=== PATIENT | male | born 1960 | race Two or more races ===

== ENCOUNTER 2018-04-13 15:25 | Inpatient (IN) | payer MEDICAID ==
[~2018-04-13] VITALS: Ht 167.6 cm; Wt 78.0 kg
[2018-04-13] VITALS (7 sets, daily range): BP systolic 121–149; BP diastolic 65–78
[2018-04-13] MEDS ORDERED: RANI150T8 PO (15:41)
--- NOTE | 2018-04-13 15:43 | NUR ---
TRIAGE NURSE NOTE: THE MEDICATION LIST PAPERWORK THAT WAS GIVEN TO ME BY THE AMBULANCE STAFF FOR THIS PATIENT DOES NOT HAVE PATIENTS NAME ON IT.. I ASKED PATIENT IF HE KNOWS THE NAMES OF THE MEDICINES HE TAKES AND HE SAID "NOT REALLY". HE DENIES TAKING A BLOOD PRESSURE MEDICINE AND THE LIST HAD A BP MEDICINE ON IT.. I CANNOT USE THIS LIST I DO NOT KNOW IF IOT IS HIS MED LIST. I CALLED [facility] TO SEND/FAX ME A LIST WITH THE PATIENTS INFO ON IT.
--- NOTE | 2018-04-13 15:50 | NUR ---
at bedside to see and examine patient.
[2018-04-13] MEDS ORDERED: IV NORMAL SALINE 1000 ML BAG IV ONE ×2 (16:00→17:00)
[2018-04-13] MEDS ORDERED: GEMF600T3 PO (16:01)
[2018-04-13] MEDS ORDERED: LISI40TA4 PO (16:02)
[2018-04-13] MEDS ORDERED: GABA800T2 PO (16:03)
[2018-04-13] MEDS ORDERED: FAMO20TA8 PO (16:03)
[2018-04-13] MEDS ORDERED: DOCU100C36 PO (16:04)
[2018-04-13] MEDS ORDERED: DICL100G16 TP (16:04)
[2018-04-13] MEDS ORDERED: CEFTRIAXONE 1 G in IV DEXTROSE 5% 100 ML IV ONE (16:15)
[2018-04-13 16:16] LABS: *BILIRUBIN,URIN NEGATIVE (NEGATIVE); *BLOOD, URINE 3+ (NEGATIVE); *CLARITY,URINE CLOUDY (CLEAR); *KETONES,URINE NEGATIVE (NEGATIVE); *PROTEIN,URINE 2+ (NEGATIVE); *UROBILINOGEN,URINE 0.2 E.U./dl (NORMAL); LEUKOCYTE ESTERASE ,URINE 1+ (NEGATIVE); NITRITE, URINE NEGATIVE (NEGATIVE); PH,URINE 6.5 (5.0-8.0); UGLUCOSE NEGATIVE (NEGATIVE)
[2018-04-13 16:17] LABS: BASOPHILS # (AUTO) 0.1 K/uL (0.0-8.0); BASOPHILS % (AUTO) 0.5 % (0.0-2.0); HEMATOCRIT 28.5 % (36.7-47.1); HEMOGLOBIN 9.2 g/dL (12.5-16.3); LYMPHOCYTES # (AUTO) 0.5 K/uL (20.0-40.0); MEAN CORPUSCULAR HEMOGLOBIN 30.4 uug (23.8-33.4); MEAN CORPUSCULAR HGB CONC 32 g/dL (32.5-36.3); MEAN CORPUSCULAR VOLUME 94.5 fL (73.0-96.2); MONOCYTES # (AUTO) 1.5 K/uL (2.0-10.0); MONOCYTES % (AUTO) 9.4 % (0.0-11.0); NEUTROPHILS # (AUTO) 13.7 K/uL (1.8-8.9); NEUTROPHILS % (AUTO) 87.1 % (38.5-71.5); PLATELET COUNT (AUTO) 211 K/uL (152-348); RED BLOOD CELL COUNT(AUTO) 3.02 MIL/uL (4.06-5.63); WHITE BLOOD COUNT (AUTO) 15.7 K/uL (3.6-10.2)
--- NOTE | 2018-04-13 16:24 | NUR ---
heart rate 113 119/80, SAT 100% pt. with c/o pain of his back. 02/15, notified.
[2018-04-13 16:26] LABS: CREATININE 1.1 mg/dL (0.6-1.3); POTASSIUM 4.8 mmol/L (3.5-5.1)
[2018-04-13 16:31] LABS: BILIRUBIN,DIRECT 0.3 mg/dL (0.0-0.2); BILIRUBIN,TOTAL 0.6 mg/dL (0.2-1.0)
[2018-04-13 16:32] LABS: *COLOR,URINE RED (YELLOW)
[2018-04-13] MEDS ORDERED: CEFTRIAXONE 1 G VIAL ONE (16:32)
[2018-04-13 16:36] LABS: RBC,URINE TNTC /HPF (0-3)
[2018-04-13 16:37] LABS: BACTERIA,URINE MANY /HPF (NONE SEEN); WBC,URINE 50-80 /HPF (0-3)
--- NOTE | 2018-04-13 16:44 | NUR ---
114/64, HR. 115. Addendum: 04/13/18 at 1645 by GMATEOS SAT 100%
[2018-04-13] MEDS ORDERED: VANCOMYCIN IV 1,000 MG in IV DEXTROSE 5% 250 ML IV ONE (17:00)
[2018-04-13] MEDS ORDERED: IV NORMAL SALINE 500 ML BAG IV ONE (17:00)
[2018-04-13] MEDS ORDERED: VANCOMYCIN IV 200 ML ONE (17:07)
[2018-04-13] MEDS ORDERED: IV NORMAL SALINE 250 ML IV ONE (17:14)
[2018-04-13] MEDS ORDERED: NORMAL SALINE FLUSH 10 ML DISP.SYRIN ONE (17:14)
[2018-04-13] MEDS ORDERED: IOHEXOL 300MG/ML 100 ML INFUS..BTL ONE (17:14)
[2018-04-13] MEDS ORDERED: SWABABLE VALVE TRANSFER SET EA MC ONE (17:14)
--- NOTE | 2018-04-13 17:23 | NUR ---
Patient taken down for CT.
--- NOTE | 2018-04-13 17:30 | NUR ---
Hr 111, SAT 100%, RR 18, 126/76 Temp 100.0.
--- NOTE | 2018-04-13 17:43 | NUR ---
A call to [employer] consumer electronics merchandiser physician Dr. iSnha.
--- NOTE | 2018-04-13 17:49 | NUR ---
HR 122, SAt 100%, RR 16, 164/93.
--- NOTE | 2018-04-13 17:49 | NUR ---
patient back from Ct. Addendum: 04/13/18 at 1809 by GMATEOS IV to LFA red swollen and infiltrated. Left external jugular G 18 started by .
--- NOTE | 2018-04-13 18:13 | NUR ---
at bedside Lumbar pucture in progress. pt. AAOx4. vitals stable see VS flow sheet.
[2018-04-13] MEDS ORDERED: ACETAMINOPHEN 325 MG TABLET PO ONE (18:15)
--- NOTE | 2018-04-13 18:20 | NUR ---
LUIS EDUARDO finished at this time specimens taken to lab as ordered by rn. Hernandez.
[2018-04-13] MEDS ORDERED: ACETAMINOPHEN ES 500 MG TABLET ONE (18:22)
[2018-04-13] MEDS ORDERED: MORPHINE SULFATE 2 MG/1 ML DISP.SYRIN IV ONE (18:30)
--- NOTE | 2018-04-13 18:30 | NUR ---
HR 115, 97% RA, 104/60 RR 18.
--- NOTE | 2018-04-13 18:41 | NUR ---
New RFA G 20 started at this time.
[2018-04-13] MEDS ORDERED: MORPHINE SULFATE 2 MG/1 ML DISP.SYRIN IV PRN (18:45)
[2018-04-13] MEDS ORDERED: ENALAPRILAT DIHYDRATE 1.25 MG/1 ML VIAL IV PRN (18:45)
[2018-04-13] MEDS ORDERED: ONDANSETRON 4 MG/2 ML VIAL IV PRN (18:45)
[2018-04-13] MEDS ORDERED: MAGNESIUM HYDROXIDE 30 ML LIQUID UDC PO PRN (18:45)
[2018-04-13] MEDS ORDERED: ACETAMINOPHEN 325 MG TABLET PO PRN (18:45)
[2018-04-13] MEDS ORDERED: MORPHINE SULFATE 4 MG/1 ML DISP.SYRIN ONE (18:48)
--- NOTE | 2018-04-13 19:09 | NUR ---
Telephone report givento Lauren Chambers R.n. infomed that IV fluids ordered for sepsis protocol area bout to be completed.
--- NOTE | 2018-04-13 19:20 | NUR ---
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
[2018-04-13 19:22] LABS: CSF PROTEIN 120 mg/dL (15-45)
[2018-04-13 19:24] LABS: CSF GLUCOSE 78 mg/dL (40-70)
--- NOTE | 2018-04-13 19:50 | NUR ---
ADMITTED PT FROM ER VIA ALEXANDRE, W/ ADMITTING DX OF SEPSIS. PT IS ALERT & ORIENTED X3. ON RM AIR W/ O2 SAT OF 97%. HEP LOCK ON RFA INFILTRATED & REMOVED. HEP LOCK INTACT & PATENT ON LEFT EXTERNAL JUGULAR # 20. PT. IS PARAPLEGIC. BOTH LOWER EXTREMITIES ARE FLACCID. C-SCOPE ST, TEMP-102 ORALLY. PERIANAL AREA IS REDDENED, CLEANED & KEPT DRY. REPOSITIONED ON HIS SIDE W/ HOB ELEVATED.
[2018-04-13] MEDS ORDERED: FLUCONAZOLE 200 MG/NS 100ML IV 100 MG in PREMIXED 1 EACH IV SCH ×2 (20:00→20:45)
--- NOTE | 2018-04-13 20:30 | NUR ---
JANETTE LOBATO NOTIFIED CSF TOTAL PROTEIN RESULT-120.
--- NOTE | 2018-04-13 20:46 | NUR ---
pharmacy clinical notes: (vancomycin dosing) S: 57 yo male with DX of: Clinical sepsis, both buttock cellulitis/abscess, s/p i&d; HCAP and Large R pl effusion ordered Vancomycin per RX. Pt is also on Merrem and Diflucan O: BUN/SCR 24/1.1; WBC 15.7; TEMP 101.7, DOSING WT 165 LBS A/P: Pt received Vancomycin 1 gm in ER @ 17:12(will consider dose #1) . Will dose Vancomycin @ 1gm IVPB q13h. next dose due @ 0600 am tomorrow (dose #2). Estimated peak of 35 and trough of 17. Plan to order Vanco trough prior to 4th dose (not ordered in [employer]). Will continue to follow up
[2018-04-13] MEDS ORDERED: Z GUARD REMEDY PASTE 57 GM TUBE TOP PRN (21:00)
[2018-04-13] MEDS: IV 1/2NS 1000 ML 1,000 ML IV PRN (21:08)
[2018-04-13] MEDS: Z GUARD REMEDY PASTE 57 GM TUBE TOP SCH (21:09)
[2018-04-13] MEDS: NYSTATIN SUSPENSION 5 ML LIQUID UDC PO SCH (21:10)
[2018-04-13] MEDS: MEROPENEM 0.5 G in IV NORMAL SALINE 50 ML IV SCH (22:00)
--- NOTE | 2018-04-13 22:00 | NUR ---
HS CARE DONE. REPOSITIONED W/ HOB ELEVATED.
[2018-04-13] MEDS ORDERED: GUAIFENESIN/CODEINE 5 ML LIQUID UDC PO PRN (22:45)
--- NOTE | 2018-04-13 23:00 | NUR ---
SLEEPING AT THIS TIME. V/S STABLE.
[2018-04-14] VITALS (17 sets, daily range): BP systolic 99–158; BP diastolic 51–115
--- NOTE | 2018-04-14 04:00 | NUR ---
AM CARE DONE. ORAL CARE DONE. REPOSITIONED ON HIS SIDE W/ HOB ELEVATED.
[2018-04-14 04:57] LABS: BASOPHILS % (AUTO) 0.2 % (0.0-2.0); HEMATOCRIT 26.5 % (36.7-47.1); HEMOGLOBIN 8.6 g/dL (12.5-16.3); LYMPHOCYTES # (AUTO) 0.6 K/uL (20.0-40.0); LYMPHOCYTES % (AUTO) 4.1 % (20.5-51.5); MEAN CORPUSCULAR HEMOGLOBIN 29.6 uug (23.8-33.4); MEAN CORPUSCULAR HGB CONC 32 g/dL (32.5-36.3); MEAN CORPUSCULAR VOLUME 91.7 fL (73.0-96.2); MONOCYTES # (AUTO) 0.8 K/uL (2.0-10.0); MONOCYTES % (AUTO) 6.1 % (0.0-11.0); NEUTROPHILS # (AUTO) 12.1 K/uL (1.8-8.9); NEUTROPHILS % (AUTO) 89.6 % (38.5-71.5); PLATELET COUNT (AUTO) 160 K/uL (152-348); RED BLOOD CELL COUNT(AUTO) 2.89 MIL/uL (4.06-5.63); WHITE BLOOD COUNT (AUTO) 13.5 K/uL (3.6-10.2)
[2018-04-14] MEDS: MEROPENEM 0.5 G in IV NORMAL SALINE 50 ML IV SCH ×2 (05:20→13:48)
[2018-04-14 05:21] LABS: THYROID STIMULATING HORMONE 0.382 mIU/mL (0.358-3.740)
[2018-04-14 05:39] LABS: BILIRUBIN,TOTAL 0.6 mg/dL (0.2-1.0); CREATININE 1.2 mg/dL (0.6-1.3); MAGNESIUM 1.5 mg/dL (1.8-2.4); POTASSIUM 4.7 mmol/L (3.5-5.1); TOTAL PROTEIN, SERUM 6.6 g/dL (6.4-8.2)
--- NOTE | 2018-04-14 05:47 | NUR ---
CHEST XR DONE.
[2018-04-14] MEDS ORDERED: VANCOMYCIN IV 1 G in PREMIXED 0 EACH IV SCH (06:00)
--- NOTE | 2018-04-14 06:00 | NUR ---
REPOSITIONED ON HIS SIDE W/ HOB, NOT IN ANY DISTRESS.
--- NOTE | 2018-04-14 08:02 | NUR ---
reported from lab patient has gram negative rods in blood cultures. patient is on broad spectrum antibiotics. Will report results to doctor.
[2018-04-14] MEDS: FAMOTIDINE 20 MG TABLET PO SCH ×2 (08:05→17:27)
[2018-04-14] MEDS: NYSTATIN SUSPENSION 5 ML LIQUID UDC PO SCH ×3 (08:05→17:26)
[2018-04-14] MEDS: GABAPENTIN 400 MG CAPSULE PO SCH ×3 (08:07→17:27)
[2018-04-14] MEDS: Z GUARD REMEDY PASTE 57 GM TUBE TOP SCH (08:08)
[2018-04-14] MEDS ORDERED: GEMFIBROZIL 600 MG TABLET PO SCH (09:00)
[2018-04-14] MEDS ORDERED: Medication Not On Formulary EA (Gabapentin 1 TAB) PO SCH (09:00)
[2018-04-14] MEDS ORDERED: GABAPENTIN 400 MG CAPSULE PO SCH (09:00)
[2018-04-14] MEDS ORDERED: DOCUSATE SODIUM 100 MG CAPSULE PO SCH (09:00)
[2018-04-14] MEDS: MORPHINE SULFATE 4 MG/1 ML DISP.SYRIN IV PRN ×3 (10:00→19:39)
--- NOTE | 2018-04-14 11:11 | NUR ---
pharmacy clinical notes: (vancomycin dosing) S: To continue vancomycin dosing for this 57 yo male for clinical sepsis, both buttock cellulitis/abscess, s/p i&d; HCAP and Large R pl effusion O: BUN/SCR 19/1.2; WBC 13.5; TEMP 98.2 wt 78 kg ht 167.6 cm A/P: Due to slight increase in srcr, will change dose from vanco 1gm IV q13h to vanco 1250mg IV q18 h for predicted vanco trough level of 15 mcg/ml at steady state. [facility] Plan to order Vanco trough prior to 4th dose (not ordered). Will continue to follow up
[2018-04-14] MEDS: IV 1/2NS 1000 ML 1,000 ML IV PRN (13:26)
--- NOTE | 2018-04-14 15:00 | NUR ---
Received this transfer from ICU by bed, on 1 st step mattress, placed on tele SR. Vital signs taken and recorded. IVF infusing. Awake, alert, oriented x 4, paraplegic. Marcano catheter to drainage bag. Repositioned comfortably
[2018-04-14] MEDS: MAGNESIUM SULFATE/D5W 100 ML IV SCH ×2 (15:24→17:26)
[2018-04-14] MEDS ORDERED: ACET325T53 PO (17:41)
[2018-04-14] MEDS ORDERED: NYST5ORA PO (17:41)
[2018-04-14] MEDS ORDERED: RXVAN IV (17:41)
[2018-04-14] MEDS ORDERED: Morphine Sulfate Inj IV (17:41)
[2018-04-14] MEDS ORDERED: ONDA4VIA30 IV (17:41)
[2018-04-14] MEDS ORDERED: MERO500V IV (17:41)
[2018-04-14] MEDS ORDERED: FLUC100P4 IV (17:41)
[2018-04-14] MEDS ORDERED: MENT71OI TOP (17:41)
[2018-04-14] MEDS ORDERED: LISI-603 PO (17:41)
[2018-04-14] MEDS ORDERED: GUAI5SYR4 PO (17:41)
[2018-04-14] MEDS ORDERED: LISINOPRIL 20 MG TABLET PO SCH (17:45)
--- NOTE | 2018-04-14 18:45 | NUR ---
For transfer to [facility]. Awaiting for room assignment/acceptance. Patient informed. Tele discontinued
--- NOTE | 2018-04-14 19:26 | NUR ---
Accepted at [facility] room 306A. Report given to Johan. Endorsed for further follow up.
--- NOTE | 2018-04-14 19:27 | NUR ---
RECEIVED PT AWAKE , ALERT ,AND ORIENTEDX4. PT GIVEN PAIN MEDICATION. PT STABLE, NO SIGNS OF DISTRESS.IV INTACT AND PATENT. TOVAR CATHETER INTACT. CALL LIGHT WITHIN REACH. SAFETY AND COMFORT PROVIDED. WAITING FOR AMBULANCE TO BE DISCHARGED.
--- NOTE | 2018-04-14 20:00 | NUR ---
PT DISCHARGED VIA GURNEY. PT SHOWS NO SIGNS OF DISTRESS. DISCHARGE PACKET GIVEN. REPORT GIVEN TO Victoria PRUITT FROM UNIT [address] ([facility] ). PT IV INTACT. TOVAR CATHETER INTACT. ID BAND TAKEN OFF. BELONGING LIST DONE. PT STABLE.
[2018-04-14] MEDS ORDERED: VANCOMYCIN IV 1,250 MG in IV DEXTROSE 5% 500 ML IV SCH (21:00)
[2018-04-15] MEDS ORDERED: CYANOCOBALAMIN 1000 MCG/ML VIAL IM SCH (09:00)
== END 2018-04-14 19:59 | disposition short-term general hospital (02) | DRG 720 ==
LOC: ER 15:28 → CCU 18:53 → TELE 04-14 15:01 → MED 04-14 17:12
PROVIDERS: ADMIT Internal Medicine; ATTEND Internal Medicine
PROC: 05HY33Z Insertion of Infusion Device into Upper Vein, Percutaneous Approach (ICD-10-PCS; principal; 2018-04-14)
PROC: 009U3ZX Drainage of Spinal Canal, Percutaneous Approach, Diagnostic (ICD-10-PCS; principal; 2018-04-14)
DX: A41.9 Sepsis, unspecified organism (principal); N17.0 Acute kidney failure with tubular necrosis; E43 Unspecified severe protein-calorie malnutrition; D68.59 Other primary thrombophilia; G82.20 Paraplegia, unspecified; B37.0 Candidal stomatitis; E83.42 Hypomagnesemia; G93.89 Other specified disorders of brain; N39.0 Urinary tract infection, site not specified; E86.0 Dehydration; N31.9 Neuromuscular dysfunction of bladder, unspecified; S24.103S Unspecified injury at T7-T10 level of thoracic spinal cord, sequela; K80.20 Calculus of gallbladder without cholecystitis without obstruction; W19.XXXS Unspecified fall, sequela; Z68.27 Body mass index [BMI] 27.0-27.9, adult; K21.9 Gastro-esophageal reflux disease without esophagitis; E53.8 Deficiency of other specified B group vitamins; D64.9 Anemia, unspecified; Z87.891 Personal history of nicotine dependence; K76.0 Fatty (change of) liver, not elsewhere classified; K74.60 Unspecified cirrhosis of liver; I10 Essential (primary) hypertension
CPT/HCPCS: 36415; 70030-TC; 70450; 71045; 82306; 83550; 83605; 83735; 84100; 84157; 84443; 85025; 85730; 87040; 87077; 87086; 89051; 93005; A4663; A9150; J0696; J1450; J2185; J2270; J3370; J3475; J3490; J7030; J7040; J7050; J7060; Q9967